=== PATIENT | male | born 1945 | race Caucasian/White ===

== ENCOUNTER 2019-10-16 09:42 | Outpatient (RCR) | payer MEDICARE, SELFPAY ==
--- NOTE | 2019-10-16 11:00 | PTOPEVAL ---
Thank you for referring this patient to [facility]. Please review, sign, date and return this plan of care YAW. I agree with and certify that the following plan of care is medically necessary. Referring Physician Date Admitting Provider: Attending Provider: Valdemar Luna MD Referring Provider: *PT Outpatient Evaluation Start: 10/16/19 10:08 Freq: Status: Active Protocol: Document 10/16/19 10:09 NIKOLAY (Rec: 10/16/19 10:49 INKOLAY [id number]) Therapy Assessment Status Assessment Status Assessment Status Evaluation Evaluation Information Problem Diagnosis bilateral hip pain Onset 10/15/18 Subjective Information Pt. reports that he noticed a Query Text:As Reported By Patient/ gradual onset of described Family outside hip pain over the past year. He states that he has lead a very active lifestyle. He states that he currently resides at the local assisted living facility. He reports that pain is increased with basic ADL's including dressing and walking. He reports that pain will shoot down the l.e. all the way down into his shins. He states that left side pain is more intense than the right. Pt. has a hx of back surgery, but does not recall the specific surgery. He states that his goal is to decrease his hip pain with activity. Prior Level of Function Activity Level (Last 3 Months) Occupation retired Hand Dominance Left Activity of Daily Living Ability Independent Indoor/Home Mobility Independent Community Mobility Needs Some Help Stairs Ability Not-Applicable Cooking No Cleaning No Laundry No Shopping No Driving No Home Setting Home Type Assisted Living Facility Living Situation Alone Support Available Local Family Support,Physical Assist Available Pain Assessment Timing of Pain Assessment Timing of Pain Assessment Pre-Treatment Pain Scale Pain Scale Used Numeric (1 - 10) Self Report Pain Assessment Bilateral Hip(s) Reported Pain L
--- NOTE | 2019-10-22 08:33 | PCPTNOTE ---
10/22/19-pt cancelled appointment today secondary to lock down at [facility]. -
== END 2019-10-17 08:17 | disposition home or self-care (01) ==
LOC: CHSPT 09:42
PROVIDERS: PCP Internal Medicine; Visit Provider Orthopaedic Surgery
DX: M25.552 Pain in left hip (principal); M25.551 Pain in right hip
CPT/HCPCS: 97014; 97110; 97161; G0283

== ENCOUNTER 2020-06-06 18:40 | Emergency (ER) | payer MEDICARE, SELFPAY ==
--- NOTE | ~2020-06-06 | XR_ITS ---
XR lumbar spine 2-3V 06/06/2020 19:59 Indication: Back pain for 3 weeks Procedure: 2 views lumbar spine Comparison: No prior studies for comparison. Findings: There are pedicle screws consistent with posterior spinal fusion at L4-S1. There is prosthe tic disc device at L5-S1. There is advanced disc narrowing at all lumbar levels with vacuum phenomena at L1-2, L2-3 and L3-4. No acute fracture or traumatic malalignment. There are laminectomy changes a t the levels of fusion. There is levoscoliosis. Generalized osteopenia. Moderate-severe osteoarthriti s of the hips. Impression: 1: No acute abnormality of the lumbar spine. 2: Severe lumbar spondylosis with fusion at L4-S1. Reviewed, dictated and finalized at location A. Impression: 1: No acute abnormality of the lumbar spine. 2: Severe lumbar spondylosis with fusion at L4-S1.
[2020-06-06 18:54] VITALS: BP 121/57; PULSE 74; RESP 20; TEMP 37.1; O2SAT 97
--- NOTE | 2020-06-06 18:57 | ED.FALL ---
HPI - Fall General Chief Complaint: Fall Stated Complaint: ambulance Time Seen by Provider: 06/06/20 18:59 History of Present Illness HPI Narrative: 75-year-old male patient is brought by EMS to the ER from an assisted living center for the complaints of pain in the back. The patient states that he sustained a ground level fall 3 weeks ago and since then has had progressive pain in the back. He points the pain to the left side of his lumbar area. He states that he favors that side very much. He states that he has been walking with his back hunched over to alleviate the pain. He has been able to control the pain with Tylenol. He has had no limitation in ambulation with the help of walker. He denies any other recent falls. He states that the assisted living center staff saw him hunched over today and decided to send him over for evaluation to the ER. The patient apparently has had falls in the past. And has been through physical therapy twice. He is otherwise significantly independent at this assisted living center. He has not been receiving any physical therapy lately because of COVID. He denies any numbness or weakness to his lower extremities. He denies any constant urinary or bowel incontinence. He does admit to drinking a lot a water and has to urinate frequently. Periodically he does not make it to the bathroom. 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 He states that the back pain has been relieved with the heating pad that he acquired recently. Related Data Home Medications Medication Instructions Recorded Confirmed amlodipine 10 mg PO DAILY 06/06/20 06/06/20 aspirin 81 mg PO DAILY 06/06/20 06/06/20 atorvastatin 10 mg PO DAILY 06/06/20 06/06/20 cholecalciferol (vitamin D3) 50 mcg PO DAILY 06/06/20 06/06/20 cyanocobalamin (vitamin B-12) 2,500 mcg PO DAILY 06/06/20 06/06/20 folic acid 1 mg PO DAILY 06/06/20 06/06/20 gabapentin 300 mg PO HS 06/06/20 06/06/20 Allergies Allergy/AdvReac Type Severity Reaction Status Date / Time No Known Allergies Allergy Unverified 06/06/20 19:05 Review of Systems Review of Systems: All systems reviewed & are unremarkable except as noted in HPI and below Constitutional: Constitutional: Denies chills, Denies fatigue, Denies fever(s) and Denies weakness Eyes: Eyes: Denies change in vision ENT: Denies vertigo and Denies dizziness Cardiovascular: Cardiovascular: Denies chest pain Respiratory: Respiratory: Denies no additional respiratory complaints and Denies dyspnea Gastrointestinal: Gastrointestinal: Denies abdominal pain Genitourinary: Genitourinary: Reports as per HPI Musculoskeletal: Musculoskeletal: Reports back pain and Denies joint swelling Neurologic: Denies confusion, Denies vertigo, Denies dizziness, Denies syncope, Denies headache(s), Denies focal weakness, Denies numbness and Denies weakness Psychiatric: Psychiatric: Denies anxiety PMFSH Past Medical History Medical History Frequent falls Hearing loss Hypercholesterolemia Hypertension Surgical History Surgical History History of bilateral knee replacement Family History Family History Other Hypertension Social History Social History Smoking status: Never smoker Alcohol intake: current Substance use: unknown Gender identity (if verbalized by the patient): Male Spiritual care concerns: No Exam Const: General: no acute distress and alert Orientation/consciousness: patient oriented x3 HENMT: Head: normal to inspection Ears: external ears normal Face and sinus: normal facial exam Mouth: Yes Normal oral and palatal mucosa present and Yes moist mucous membranes E
[2020-06-06] MEDS: ACETAMINOPHEN 325 MG TABLET 650 MG PO (19:24)
[2020-06-06 19:37] LABS: Add Urine Microscopic? YES; Appearance Urine Clear (Clear); Bilirubin Urine 1+ (Negative); Blood Urine 1+ (Negative); Color Urine Yellow (Yellow); Glucose Urine UA Trace (Negative); Ketones Urine 1+ (Negative); Leukocyte Esterase Ur Negative (Negative); Nitrate Urine Negative (Negative); Protein Urine 1+ (Negative); Specific Grav Ur >= 1.030 (1.010-1.020); pH Urine 5.5 (5.0-8.0)
[2020-06-06 19:46] LABS: Squamous Epithelial Cell Urine Rare /hpf (Few); WBC Urine 0-3 /hpf (0-3)
[2020-06-06 19:47] LABS: Bacteria Urine Trace /hpf
[2020-06-06 21:30] VITALS: BP 152/76; PULSE 63; RESP 20; O2SAT 100
== END 2020-06-06 21:30 ==
PROVIDERS: Emergency Provider Emergency Medicine; PCP Family Medicine
DX: M54.9 Dorsalgia, unspecified (principal); E78.00 Pure hypercholesterolemia, unspecified; I10 Essential (primary) hypertension
CPT/HCPCS: 72100; 81001; 99282; 99283; A9270

== ENCOUNTER 2020-06-07 10:47 | Observation (INO) | payer MEDICARE, SELFPAY ==
[2020-06-07] VITALS (8 sets, daily range): BP systolic 142–177; BP diastolic 58–80; PULSE 53–61; RESP 14–22; TEMP 36.1–37.2; O2SAT 98–100; BMI 19.8
--- NOTE | ~2020-06-07 | CT_ITS ---
EXAMINATION: CT pelvis wo con DATE: 06/07/2020 12:54 INDICATION: Low back and pelvic pain TECHNIQUE: Computed tomography (CT) of the pelvis was performed without intravenous contrast. The dos e-length product (DLP) was 153.62 mGy-cm. Automated exposure control and iterative reconstruction sourav hnique were employed. COMPARISON: None FINDINGS: There are partially imaged surgical changes in the lumbar spine. No pelvic fracture is iden tified. There is moderate right and severe left hip osteoarthritis. No pathologically enlarged pelvic lymph nodes are identified. There is calcified atherosclerosis. An intramuscular lipoma is noted in the left hip flexors. A moderate volume of colonic stool is present. IMPRESSION: 1. No fracture identified. Reviewed, dictated and finalized at location A. NE GENERATOR ASSEMBLER IMPRESSION: 1. No fracture identified.
--- NOTE | ~2020-06-07 | XR_ITS ---
EXAMINATION: XR chest 1V INDICATION: Pain after fall TECHNIQUE: AP view of the chest is obtained. COMPARISON: None available FINDINGS: The lungs are free of acute opacities. There is no pleural effusion or pneumothorax. The ca rdiomediastinal silhouette is normal. Surgical changes are noted in the cervical spine and left humer us. IMPRESSION: 1. No acute cardiopulmonary abnormality. Reviewed, dictated and finalized at location A. TRICIAN RECTIFIER MAINTENANCE
--- NOTE | ~2020-06-07 | CT_ITS ---
EXAMINATION: CT lumbar spine wo con DATE: 06/07/2020 12:54 INDICATION: Low back pain TECHNIQUE: Computed tomography (CT) of the lumbar spine was performed without intravenous contrast. T he dose-length product (DLP) was 765.59 mGy-cm. Iterative reconstruction was used. COMPARISON: None FINDINGS: There are changes of fusion procedure and laminectomy from L4 through S1. There is advanced loss of intervertebral disc space height at L1-2 through L3-4. The vertebral body heights are mainta ined. There are 4 mm of anterolisthesis of L5 on S1. No fracture is identified. IMPRESSION: 1. Surgical changes and severe lumbar spondylosis without acute abnormality identified. Reviewed, dictated and finalized at location A. ET ASSET PROTECTION MANAGER IMPRESSION: 1. Surgical changes and severe lumbar spondylosis without acute abnormality stacey ntified.
--- NOTE | ~2020-06-07 | CT_ITS ---
EXAMINATION: CT brain wo con INDICATION: Head injury COMPARISON: None TECHNIQUE: Standard unenhanced head CT. The dose-length product (DLP) was 605.33 mGy-cm. The mA was a djusted according to patient size. Iterative reconstruction technique was employed. FINDINGS: There is no acute intraparenchymal hemorrhage. No evidence of mass lesion. No evidence of a cute infarction. There is mild periventricular and subcortical hypodensity probably related to small vessel ischemic disease. There is mild prominence of the sulci and ventricles related to cerebral atr ophy. Intracranial calcified cerebral atherosclerosis is noted. There are no extra-axial collections. There is no mass effect or midline shift. Changes in the globes are likely from ocular lens surgery. The visualized sinuses and mastoid air cells are well aerated. IMPRESSION: 1. No acute intracranial abnormality. 2. Age related findings. Reviewed, dictated and finalized at location A. RESSIVE CARE UNIT REGISTERED NURSE
--- NOTE | 2020-06-07 10:56 | ECG_ITS ---
Measurements Intervals [place] Rate: 56 P: 47 [place]: 163 QRS: -13 QRSD: 90 T: 58 QT: 409 QTc: 397 Interpretive Statements SINUS BRADYCARDIA WITH SINUS ARRHYTHMIA BASELINE ARTIFACT- I, II, AVR, AVL, AVF, V1 NORMAL ECG Electronically Signed On 06-07-2020 15:09:00 WHARF ATTENDANT by Romulo Martínez D.O.
[2020-06-07 11:17] LABS: Basophils Percent Auto 0.3 % (0.2-1.2); Eosinophils Absolute Auto 0.1 K/mm3 (0-0.3); Eosinophils Percent Auto 1.2 % (0-4.4); Hemoglobin 11.5 g/dL (14.0-18.0); Immature Granulocyte Absolute 0.03 K/mm3 (0.00-0.031); Immature Granulocyte Percent A 0.5 % (0-0.5); Lymphocytes Absolute Auto 0.77 K/mm3 (0.9-3.2); Lymphocytes Percent Auto 13.3 % (18.3-44.2); Mean Corpuscular HGB Conc 32.9 g/dl (32-36); Mean Corpuscular Hemoglobin 32.2 pg (26-34); Mean Platelet Volume 8.8 fl (7.4-10.4); Monocytes Absolute Auto 0.5 K/mm3 (0.1-0.6); Neutrophils Absolute Auto 4.4 K/mm3 (1.3-6.7); Neutrophils Percent Auto 75.7 % (45.5-73.1); Platelet Count Result 282 k/mm3 (150-375); Red Blood Count 3.57 M/mm3 (4.6-6.20); Red Cell Distribution Width 13.6 % (11.5-14.5); White Blood Count 5.8 K/mm3 (4.5-10.0)
[2020-06-07 11:32] LABS: Alanine Aminotransferase 44 U/L (4-50); Albumin Level 3.9 g/dL (3.5-5.1); Alkaline Phosphatase 71 U/L (38-126); Anion Gap 5 mmol/L (8-16); Aspartate Amino Transferase 49 U/L (17-59); Bilirubin,Total 0.8 mg/dL (0.2-1.3); Blood Urea Nitrogen 20 mg/dL (9-20); Calcium 9.1 mg/dL (8.4-10.2); Carbon Dioxide 34 mmol/L (22-30); Chloride 105 mmol/L (98-107); Estimated CRCL calculation 68 ml/min; Estimated Glomerular Filt Rate > 60; Glucose 93 mg/dL (75-110); Sodium 144 mmol/L (137-145)
[2020-06-07 12:24] LABS: Add Urine Microscopic? YES; Appearance Urine Clear (Clear); Bilirubin Urine Negative (Negative); Blood Urine 1+ (Negative); Color Urine Yellow (Yellow); Glucose Urine UA Negative (Negative); Ketones Urine 1+ mg/dL (Negative); Leukocyte Esterase Ur Negative LEU/UL (Negative); Mucus Urine Few /lpf; Nitrate Urine Negative (Negative); Protein Urine 2+ mg/dL (Negative); Specific Grav Ur 1.026 (1.001-1.035); Squamous Epithelial Cell Urine Rare /hpf (Few); WBC Urine 0-3 /hpf
--- NOTE | 2020-06-07 12:24 | ED.WEAKNESS ---
HPI - Weakness General Chief complaint: Weakness Stated complaint: weak Time Seen by Provider: 06/07/20 12:01 Source: RN notes reviewed History of Present Illness HPI Narrative: Patient presents emergency department from assisted living via EMS for weakness. Patient states he currently lives in assisted living onto the walker but is been having increased difficulty getting up and ambulating secondary to weakness in left leg and lower back pain states he fell approximately 1 week ago injuring his left lower back and his left hip. States he was seen last night for the continued pain at [facility] with negative x-rays at that time. Per the family the patient has had a decreased appetite and has been weaker since the fall and patient was sent for further evaluation he denies any fevers or chills chest pain shortness of breath abdominal pain nausea vomiting or any other symptoms Related Data Home Medications Medication Instructions Recorded Confirmed amlodipine 10 mg PO DAILY 06/06/20 06/07/20 atorvastatin 10 mg PO DAILY 06/06/20 06/07/20 cholecalciferol (vitamin D3) 50 mcg PO DAILY 06/06/20 06/07/20 cyanocobalamin (vitamin B-12) 2,500 mcg PO DAILY 06/06/20 06/07/20 folic acid 1 mg PO DAILY 06/06/20 06/07/20 gabapentin 300 mg PO HS 06/06/20 06/07/20 aspirin 81 mg PO DAILY 06/07/20 06/07/20 Allergies Allergy/AdvReac Type Severity Reaction Status Date / Time No Known Allergies Allergy Verified 06/07/20 16:33 Review of Systems Review of Systems: Narrative: Gen.: Denies fevers or chills Eyes: Denies eye pain or visual change ENT: Denies congestion Respiratory: Denies shortness of breath or cough CV: Denies chest pain or palpitations GI: Denies abdominal pain nausea, emesis or diarrhea denies burning, urgency, frequency or hematuria Musculoskeletal: See HPI Neuro: Denies numbness, tingling reports weakness Skin: Denies rash Except as documented, all other systems reviewed and negative PMFSH Past Medical History Medical History Frequent falls Hearing loss Hyperlipidemia Hypertension Osteoarthritis Surgical History Surgical History History of bilateral knee replacement Family History Family History Other Hypertension Social History Social History Social History: Surrogate decision maker: Christiano Rasheed, aryan. Code status: Full code. Smoking status: Never smoker Alcohol intake: current Drinks per week: 4 Substance use: unknown Substance use type: does not use Additional living arrangements comments: Resides at [facility]. Gender identity (if verbalized by the patient): Male Spiritual care concerns: No Exam Narrative: Exam Narrative: APPEARANCE: No acute distress, nontoxic, resting in bed EYES: EOMI HEENT: Normocephalic, atraumatic, OMM RESPIRATORY: No respiratory distress Clear to auscultation bilaterally with no rhonchi wheezing or rales. CARDIOVASCULAR: Regular rate and rhythm without murmurs rubs or gallops. ABDOMINAL: Soft, nontender, nondistended, no rebound or guarding MUSCULOSKELETAl: Moves all extremities. No clubbing, cyanosis 3+ edema the bilateral lower extremities, tender palpation over the left lateral hip no swelling or ecchymosis pain with flexion greater than 45 degrees no change in the left knee or ankle dorsalis pedis pulse 2+ Back: No midline thoracic lumbar spine tenderness palpation, tender palpation over left paravertebral muscles L3-5 NEURO: Awake and alert x 3. Following commands, speech normal, no focal deficits SKIN:: Warm, dry. No rashes lesions or abrasions PSYCHIATRIC: Normal affect/mood, Course Course Emergency Course: Patient attempted get up to use bedside commode took 2 staff members to
[2020-06-07] MEDS: SODIUM CHLORIDE 0.9% IV 1,000 ML 999 ML IV CONT (13:35)
[2020-06-07 14:20] LABS: CRP < 0.5 mg/dL (<1.0)
[2020-06-07] MEDS: POTASSIUM CHLORIDE 20 MEQ TABLET 40 MEQ PO (14:30)
[2020-06-07 14:38] LABS: Erythrocyte Sedimentation Rate 17 mm/hr (0-20)
--- NOTE | 2020-06-07 16:06 | ADMGEN ---
This patient, Isaías Rasheed, was admitted to 2 Medical Room 259-01. Patient/family oriented to hospital policies and general routines including ID bracelet, bed and alarms, visiting hours, pain management, procedures, bathroom and other care routines, personal items, smoking policy, room service/diet, and visiting hours. Information on how to activate the Rapid Response Team has been discussed. Patient/Family are encouraged to report perceived risks to care and to ask questions if they do not understand what they are told or what they should do.
--- NOTE | 2020-06-07 17:00 | PM.IMHP ---
H&P: HPI History of Present Illness Date/Time: 06/07/20 17:00 Chief complaint: Left hip in back pain, weakness. Narrative: Isaías Rasheed is a 75-year-old male with hypertension and hyperlipidemia presented to the emergency department earlier today via EMS from his assisted living facility in [place] for evaluation of left hip and low back pain as well as weakness. Approximately 3 weeks ago he sustained a ground level fall after losing his balance and since that time he has had progressive pain in his left lower back and left hip. He has been compensating for this pain with an abnormal gait and staff at his assisted living facility sent him to the emergency department in [place] last evening as he was walking hunched over. Lumbar x-ray showed no acute findings, and he was discharged home. Today he had difficulties getting himself out of bed due to generalized weakness and pain. He goes on to say that it is not unusual for him to have pain in his left hip and in fact he has done 2 rounds of physical therapy for such with mild improvement. He still needs to take Tylenol twice daily for the ongoing discomfort, however. It also sounds like he has had several falls in the last couple of months, and he has a difficult time telling me exactly how it is that he is falling. He ambulates with a walker and indicates that he is falling because he is ?reaching for something that I should not be reaching for.? He has not seen an orthopedic surgeon regarding the severe osteoarthritis of the left hip noted on imaging today, and goes on to tell me that he is too old and is not interested in surgery. He would prefer not to get any injections as they do not last any length of time. Additionally he does not seem interested in going to a rehab facility and perseverates on the fact that it would take a lot of coordination efforts to get that accomplished. He denies focal weakness, paresthesias (although he does note chronic paresthesias of both hands from previous cervical spine surgery, reportedly), vertigo, and auditory or visual changes. No bowel or bladder incontinence. He denies saddle anesthesia. Review of Systems Review of Systems: Narrative: Twelve systems were reviewed with pertinent positives and negatives as per HPI. No fever, chills, or sweats. No recent cold or flu symptoms. He denies chest pain shortness of breath. No cough. No nausea, vomiting, or diarrhea. No dysuria or hematuria. Except as documented, all other systems were reviewed and are negative. [facility] Past Medical History Medical History (Updated 06/07/20 @ 19:07 by Robby Alarcon DO) Frequent falls Hearing loss Hyperlipidemia Hypertension Osteoarthritis Surgical History Surgical History (Updated 06/07/20 @ 21:38 by Iwona Mathew PA-C) History of bilateral cataract extraction History of bilateral knee replacement History of cervical spinal surgery With removal of bone spurs. History of lumbar fusion With laminectomy, at L4-S1. History of repair of left rotator cuff Status post LASIK surgery Family History Family History Other Hypertension Social History Social History (Updated 06/07/20 @ 21:39 by Iwona Mathew PA-C) Social History: Surrogate decision maker: Christiano Rasheed, son. Code status: Full code. Smoking status: Never smoker Alcohol intake: current Drinks per week: 4 Substance use: unknown Substance use type: does not use Additional living arrangements comments: Resides at [facility]. He has a parakeet. Ambulates with a walker. 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 Gender identity (if verbalized by the patient): Male Spiritual care concerns: No Meds Home Medications and Allergies Home Medications Medication Instructions Recorde
[2020-06-07] MEDS: GABAPENTIN 300 MG CAPSULE PO (22:14)
[2020-06-07] MEDS: ACETAMINOPHEN 325 MG TABLET 650 MG PO (22:14)
[2020-06-07 22:16] LABS: Alanine Aminotransferase 48 U/L (4-50); Alkaline Phosphatase 77 U/L (38-126); Aspartate Amino Transferase 56 U/L (17-59)
[2020-06-07 22:20] LABS: Creatine Kinase 338 U/L (55-170)
[2020-06-07 22:21] LABS: Anion Gap 3 mmol/L (8-16); Blood Urea Nitrogen 14 mg/dL (9-20); Calcium 9.3 mg/dL (8.4-10.2); Carbon Dioxide 37 mmol/L (22-30); Chloride 101 mmol/L (98-107); Estimated CRCL calculation 67 ml/min; Estimated Glomerular Filt Rate > 60; Glucose 95 mg/dL (75-110); Magnesium 2.2 mg/dL (1.6-2.3); Potassium 4.2 mmol/L (3.4-5.0); Sodium 141 mmol/L (137-145)
[2020-06-08] VITALS (8 sets, daily range): BP systolic 139–184; BP diastolic 60–82; PULSE 52–85; RESP 16–21; TEMP 36.7–37.2; O2SAT 98–100
[2020-06-08 02:11] LABS: Vitamin B12 > 1000.0 pg/mL (239-931)
[2020-06-08 05:46] LABS: Basophils Percent Auto 0.3 % (0.2-1.2); Eosinophils Percent Auto 0.6 % (0-4.4); Hematocrit 38.2 % (42.0-52.0); Hemoglobin 12.5 g/dL (14.0-18.0); Immature Granulocyte Absolute 0.02 K/mm3 (0.00-0.031); Immature Granulocyte Percent A 0.3 % (0-0.5); Lymphocytes Percent Auto 17.5 % (18.3-44.2); Mean Corpuscular HGB Conc 32.7 g/dl (32-36); Mean Corpuscular Hemoglobin 31.7 pg (26-34); Mean Platelet Volume 8.8 fl (7.4-10.4); Monocytes Absolute Auto 0.6 K/mm3 (0.1-0.6); Monocytes Percent Auto 9.2 % (2.6-8.5); Neutrophils Absolute Auto 4.5 K/mm3 (1.3-6.7); Neutrophils Percent Auto 72.1 % (45.5-73.1); Platelet Count Result 273 k/mm3 (150-375); Red Blood Count 3.94 M/mm3 (4.6-6.20); Red Cell Distribution Width 13.2 % (11.5-14.5); White Blood Count 6.3 K/mm3 (4.5-10.0)
[2020-06-08 06:01] LABS: Anion Gap 6 mmol/L (8-16); Blood Urea Nitrogen 13 mg/dL (9-20); Calcium 8.9 mg/dL (8.4-10.2); Carbon Dioxide 32 mmol/L (22-30); Chloride 101 mmol/L (98-107); Estimated CRCL calculation 79 ml/min; Estimated Glomerular Filt Rate > 60; Glucose 82 mg/dL (75-110); Potassium 3.2 mmol/L (3.4-5.0); Sodium 139 mmol/L (137-145)
[2020-06-08] MEDS: amLODIPine BESYLATE 5 MG TABLET 10 MG PO (09:43)
[2020-06-08] MEDS: FOLIC ACID 1 MG TABLET PO (09:43)
[2020-06-08] MEDS: ASPIRIN 81 MG ENTERIC TABLET PO (09:44)
[2020-06-08] MEDS: CHOLECALCIFEROL 1,000 UNITS TABLET 2000 UNITS PO (09:44)
[2020-06-08] MEDS: CYANOCOBALAMIN 500 MCG TABLET 2500 MCG PO (09:44)
--- NOTE | 2020-06-08 11:38 | PM.IMPN ---
Progress Note: A&P Assessment and Plan (1) Acute pain of left hip: Code(s): M25.552 - Pain in left hip Status: Acute Assessment and Plan: Ct Lumbar and sacral spine reviewed Significant stenosis Undergoing PT/OT Remote hx of spinal fusion (2) Gait instability: Code(s): R26.81 - Unsteadiness on feet Status: Acute Assessment and Plan: Continue PT/OT Will go to acute rehabilitation. (3) Low back pain: Code(s): M54.5 - Low back pain Status: Acute Assessment and Plan: Pain management. (4) Weakness: Code(s): R53.1 - Weakness Status: Acute Assessment and Plan: PT/OT CT spinal L-S reviewed. (5) Acute hypokalemia: Code(s): E87.6 - Hypokalemia Status: Acute Assessment and Plan: Replace as needed. (6) Low back pain: Code(s): M54.5 - Low back pain Status: Acute Assessment and Plan: Continue pain management. (7) Frequent falls: Code(s): R29.6 - Repeated falls Status: Acute Assessment and Plan: Will benefit from PT/OT (8) Degenerative joint disease of left hip: Code(s): M16.12 - Unilateral primary osteoarthritis, left hip Status: Acute Assessment and Plan: Will need eval for hip replacement. Subjective Date/time seen: 06/08/20 11:38 I'm very weak after I had a fall. I'm looking at rehabilitation. Review of Systems Review of Systems: Narrative: Patient with progressive weakness and gait disturbance after having a fall. Constitutional: Comments: no fevers, no rigors, no chills. ENT: Comments: no ear ache, no throat pain, no nasal discharge. Cardiovascular: Comments: no chest pain, no orthopnea, no pnd. Respiratory: Comments: no cough, no sob, no sputum production. Gastrointestinal: Comments: no n/v/abdominal pain. Musculoskeletal: Comments: Pain in the hip , difficulty walking and weakness after fall. Integumentary/Breasts: Comments: no rashes. Neurologic: Comments: no sensory motor deficit. Endocrine: Comments: No heat or cold intolerance. Exam Narrative: Exam Narrative: Patient in bed well appearing. Const: General: cooperative, healthy appearing, comfortable, no acute distress, well developed, alert, awake and Physically active Nutritional Appearance: average body habitus Orientation/consciousness: patient oriented x3 Limitations: physical limitations Other: Gait disturbance. HENMT: Head: normal to inspection and normocephalic Ears: hearing grossly normal bilaterally General nose exam: Normal external nose present Eyes: General: appearance normal, both eyes and all related structures Pupils: Equal, round and reactive pupils present EOM: EOMs intact bilaterally Neck: Neck: full ROM, no lymphadenopathy and no JVD Thyroid: thyroid normal Lymphatic: no lymphadenopathy noted Resp: Effort & Inspection: normal respiratory effort Auscultation: clear to auscultation bilaterally Cardio: Jugular venous distension: no JVD Rate: regular rate Rhythm: regular rhythm Heart sounds: S1 normal heart sound present and S2 normal heart sound present GI: Inspection: normal to inspection GI Palp: Yes Soft to palpation and Yes No hepatosplenomegaly present Auscultation: normal bowel sounds Back/Spine/Pelvis: Back: no CVA tenderness Skin: General skin exam: normal color Lesions: no lesions Rashes: no rashes Trauma: no lacerations or abrasions Wounds: no wounds Neuro: General: patient oriented x3 Cranial nerves: Yes CN's II-XII intact bilaterally and Yes Equal, round and reactive pupils present Cognition (Neuro): normal cognition Speech: normal speech Gait exam (Neuro): Unable to assess gait Extrem: General: normal to inspection and no pedal edema Objective Data Vital Signs Vital Signs: Vital Signs - 24 hr 06/07/20 11:44 06/07/20 11:55 06/07/20 13:35 Temperature Pulse Rate 54 L 59 L 61 Respiratory Rate 16 14 Blood Pressure 170/79
[2020-06-08] MEDS: GABAPENTIN 300 MG CAPSULE PO (19:57)
[2020-06-09] MEDS: ACETAMINOPHEN 325 MG TABLET 650 MG PO ×2 (01:50→08:19)
[2020-06-09 06:00] VITALS: BP 159/69; PULSE 70; RESP 21; TEMP 36.7; O2SAT 100
[2020-06-09 06:04] VITALS: BP 145/86; PULSE 98; RESP 20; TEMP 37; O2SAT 99
[2020-06-09 06:06] VITALS: BP 120/84; PULSE 103; RESP 20; TEMP 36.9; O2SAT 99
[2020-06-09 08:00] LABS: Hematocrit 39.7 % (42.0-52.0); Hemoglobin 13.2 g/dL (14.0-18.0); Mean Corpuscular HGB Conc 33.2 g/dl (32-36); Mean Corpuscular Hemoglobin 32.2 pg (26-34); Mean Corpuscular Volume 96.8 fl (80-100); Mean Platelet Volume 8.9 fl (7.4-10.4); Platelet Count Result 294 k/mm3 (150-375); Red Cell Distribution Width 13.3 % (11.5-14.5); White Blood Count 7.6 K/mm3 (4.5-10.0)
[2020-06-09 08:14] LABS: Anion Gap 8 mmol/L (8-16); Blood Urea Nitrogen 15 mg/dL (9-20); Calcium 8.8 mg/dL (8.4-10.2); Carbon Dioxide 34 mmol/L (22-30); Chloride 98 mmol/L (98-107); Estimated CRCL calculation 67 ml/min; Estimated Glomerular Filt Rate > 60; Glucose 101 mg/dL (75-110); Magnesium 2.1 mg/dL (1.6-2.3); Potassium 2.9 mmol/L (3.4-5.0); Sodium 140 mmol/L (137-145)
[2020-06-09] MEDS: CYANOCOBALAMIN 500 MCG TABLET 2500 MCG PO (08:15)
[2020-06-09] MEDS: CHOLECALCIFEROL 1,000 UNITS TABLET 2000 UNITS PO (08:16)
[2020-06-09] MEDS: ASPIRIN 81 MG ENTERIC TABLET PO (08:16)
[2020-06-09] MEDS: FOLIC ACID 1 MG TABLET PO (08:16)
[2020-06-09] MEDS: amLODIPine BESYLATE 5 MG TABLET 10 MG PO (08:16)
[2020-06-09] MEDS: POTASSIUM CHLORIDE 20 MEQ TABLET 40 MEQ PO (11:08)
[2020-06-09 14:00] VITALS: BP 138/73; PULSE 74; RESP 18; TEMP 36.8; O2SAT 98
[2020-06-09 14:32] LABS: Anion Gap 2 mmol/L (8-16); Blood Urea Nitrogen 18 mg/dL (9-20); Carbon Dioxide 35 mmol/L (22-30); Chloride 99 mmol/L (98-107); Estimated CRCL calculation 67 ml/min; Estimated Glomerular Filt Rate > 60; Glucose 112 mg/dL (75-110); Potassium 3.7 mmol/L (3.4-5.0); Sodium 136 mmol/L (137-145)
--- NOTE | 2020-06-09 15:56 | PM.DS ---
DS: Admitting Diagnosis Admitting Diagnosis Admitting Diagnosis: Left hip in back pain, weakness. DS: Discharge Diagnosis Discharge Diagnosis (1) Acute pain of left hip: Code(s): M25.552 - Pain in left hip Status: Acute Assessment and Plan: Ct Lumbar and sacral spine reviewed; severe spondylosis with significant stenosis and without acute abnormality noted. CT pelvis shows no acute fracture . remote history of spinal fusion PT/OT during hospital stay; contact guard Plan to discharge back to [place] today with outpatient rehab F/u with PCP Will need referral for severe OA of left hip (2) Gait instability: Code(s): R26.81 - Unsteadiness on feet Status: Acute Assessment and Plan: PT/OT during stay Will do outpatient PT/OT (3) Low back pain: Code(s): M54.5 - Low back pain Status: Acute Assessment and Plan: Contiue with current Pain management. F/u with PCP (4) Weakness: Code(s): R53.1 - Weakness Status: Acute Assessment and Plan: PT/OT CT spinal L-S reviewed. F/u with PCP (5) Acute hypokalemia: Code(s): E87.6 - Hypokalemia Status: Acute Assessment and Plan: 2.9 this morning; replaced and now 3.7. BMP 06/12 F/u with PCP (6) Frequent falls: Code(s): R29.6 - Repeated falls Status: Acute Assessment and Plan: Please see above a/p DS: Summary Hospital Course Reason for hospitalization: Gait instability hypokalemia Hospital Course: Patient is a 75 yo M with hypertension and hyperlipidemia presented to the emergency department on 06/07 via EMS from his assisted living facility in [place] for evaluation of left hip and low back pain as well as weakness. Patient had sustained a fall 3 weeks prior and has had pain in left lower back and left hip since then. He presented to the ED on 06/06 and lumbar Xray at that time showed no acute findings and was discharged home. He returned to the ED on 06/07 as he was having difficulties getting himeslf out of bed to weakness and pain. Lumbar CT in ED showed surgical changes and severe lumbar spondylosis without acute abnormality identified. Patient admitted under this setting. Please see H&P for further details. Patient was admitted to the hospitalist service for further evaluation. Patient was assessed with PT/OT and performed fairly well; outpatient PT/OT recommended. His potassium was replaced during stay and was 3.7 on day of discharge; he was to follow up with BMP on 06/12 for further monitoring. He was to follow up with his PCP in 1 week after discharge for possible referral to a spinal surgeon and/or orthopedic surgeon for further evaluation/management of chronic OA and spinal issues. Patient agreeable and comfortable with plan for discharge. Patient hemodynamically stable and in improved condition for discharge on 06/09 Status at Discharge Overall status at discharge: patient is progressing back to baseline Time Spent with Patient Time attestation: Total time spent providing and/or coordinating discharge services: Time spent: Greater than 30 minutes Exam Narrative: Exam Narrative: General: Patient resting supine in bed in no acute distress. HEENT: Normocephalic, EOMI, oral mucosa moist. Cardiovascular: Rate and rhythm are regular. No notable murmur, rub, or gallop. Respiratory: Lungs clear to auscultation anteriolateral painter. Non-labored breathing. ecchymosis noted on left posterior lower thorax noted. Abdomen: Soft, non-tender, non-distended, bowel sounds present. Extremities: Peripheral pulses intact. No edema. MS 5/5 b/l LE. NVI b/l Neuro: No focal neurological deficits. Speech is clear. DS: Data
== END 2020-06-09 20:30 ==
LOC: ANHED 12:01 → ANH2MED 14:18
PROVIDERS: General Practice; Physician Assistant; Admitting Provider Internal Medicine; Emergency Provider Emergency Medicine; PCP Family Medicine; Visit Provider Internal Medicine
DX: R53.1 Weakness (principal); M54.5 Low back pain; R26.81 Unsteadiness on feet; M25.552 Pain in left hip; R63.0 Anorexia; E78.5 Hyperlipidemia, unspecified; I10 Essential (primary) hypertension; R29.6 Repeated falls; M47.816 Spondylosis without myelopathy or radiculopathy, lumbar region; E87.6 Hypokalemia; Z98.1 Arthrodesis status; M16.12 Unilateral primary osteoarthritis, left hip; E78.00 Pure hypercholesterolemia, unspecified; Z79.82 Long term (current) use of aspirin
CPT/HCPCS: 36415; 70450; 71045; 72131; 72192; 80048; 80053; 80076; 81001; 82550; 82607; 83735; 84443; 85025; 85027; 85652; 86140; 93005; 96360; 96361; 96374; 97161; 97165; 99285; A9270; G0378; J3480; J7030

== ENCOUNTER 2020-06-10 05:02 | Emergency (ER) | payer MEDICARE, SELFPAY ==
[2020-06-10] VITALS (18 sets, daily range): BP systolic 143–170; BP diastolic 70–91; PULSE 72–95; RESP 18; TEMP 36.9; O2SAT 96–100
--- NOTE | ~2020-06-10 | XR_ITS ---
EXAMINATION: XR hip LT 2V w AP pelvis INDICATION: Left hip pain TECHNIQUE: AP view of the pelvis and two views of the left hip are obtained. COMPARISON: 08/27/2019 FINDINGS: There is moderate right and moderate to severe left hip osteoarthritis. No fractures identi fied. Bone alignment is normal. There are changes of lumbosacral fusion. Calcified atherosclerosis is noted. IMPRESSION: 1. Osteoarthritis without acute osseous abnormality. Reviewed, dictated and finalized at location A. OPAEDIC PHYSICIAN ASSISTANT
--- NOTE | 2020-06-10 05:33 | ED.FALL ---
HPI - Fall General Chief Complaint: Fall Stated Complaint: slid out of bed, left hip pain Time Seen by Provider: 06/10/20 05:21 Source: patient Mode of arrival: EMS Limitations: no limitations History of Present Illness HPI Narrative: Patient is a 75-year-old male complaining of left hip pain after slid out of bed prior to arrival. Patient states that he heard an alarm clock and as he tried to turn he slid out of bed. Patient states he was just discharged yesterday for the same complaint of left hip pain and recurrent falls. Patient denies any head, neck, chest, abdomen, back, or any other extremity pain/injury. Patient denies LOC. Related Data Home Medications Medication Instructions Recorded Confirmed amlodipine 10 mg PO DAILY 06/06/20 06/07/20 atorvastatin 10 mg PO DAILY 06/06/20 06/07/20 cholecalciferol (vitamin D3) 50 mcg PO DAILY 06/06/20 06/07/20 cyanocobalamin (vitamin B-12) 2,500 mcg PO DAILY 06/06/20 06/07/20 folic acid 1 mg PO DAILY 06/06/20 06/07/20 gabapentin 300 mg PO HS 06/06/20 06/07/20 aspirin 81 mg PO DAILY 06/07/20 06/07/20 naproxen sodium [Aleve] 220 mg PO Q8H PRN 06/10/20 Allergies Allergy/AdvReac Type Severity Reaction Status Date / Time No Known Allergies Allergy Verified 06/10/20 05:09 Review of Systems Review of Systems: All systems reviewed & are unremarkable except as noted in HPI and below Constitutional: Constitutional: Denies body ache(s), Denies chills, Denies excessive sweating, Denies fatigue, Denies fever(s), Denies headache(s), Denies lethargy, Denies malaise, Denies weakness and Denies weight loss Eyes: Eyes: Denies blurry vision, Denies change in vision and Denies loss of vision ENT: Denies dizziness, Denies ear discharge, Denies headache(s), Denies lip swelling, Denies epistaxis, Denies nasal congestion, Denies neck pain, Denies throat swelling and Denies tongue swelling Cardiovascular: Cardiovascular: Denies chest pain, Denies chest pain at rest, Denies chest pain with activity, Denies diaphoresis, Denies rapid heart rate, Denies edema, Denies irregular heart rhythm, Denies lightheadedness, Denies palpitations, Denies dyspnea and Denies dyspnea on exertion Respiratory: Respiratory: Denies chest congestion, Denies cough, Denies hemoptysis, Denies dyspnea and Denies dyspnea on exertion Gastrointestinal: Gastrointestinal: Denies abdominal pain, Denies melena, Denies hematochezia, Denies diarrhea, Denies nausea, Denies vomiting and Denies hematemesis Musculoskeletal: Musculoskeletal: Denies abnormal gait, Denies deformity, Denies joint swelling, Denies limited range of motion, Denies neck pain and Denies numbness Neurologic: Denies Abnormal speech present, Denies abnormal gait, Denies confusion, Denies dizziness, Denies headache(s), Denies focal weakness, Denies loss of vision, Denies numbness, Denies Other visual disturbances, Denies Sensory deficit (Neuro) and Denies weakness Psychiatric: Psychiatric: Denies confusion, Denies depression, Denies auditory hallucinations, Denies homicidal ideation and Denies suicidal ideation Endocrine: Endocrine: Denies cold intolerance, Denies excessive sweating, Denies fatigue, Denies heat intolerance and Denies palpitations Hematologic/Lymphatic: Hematologic/Lymphatic: Denies easy bleeding and Denies easy bruising Allergic/Immunologic: Allergic/Immunologic: Denies lip swelling, Denies throat swelling and Denies tongue swelling PMFSH Past Medical History Medical History (Updated 06/10/20 @ 06:55 by Robby Lobo MD) Frequent falls Hearing loss Hyperlipidemia Hypertension Osteoarthritis Surgical History Surgical History (Updated 06/07/20 @ 21:38 by Iwona Mathew PA-C) History of bilateral cataract extraction History of bilateral knee replacement History of cervical spinal surgery With removal of bone spurs. History of lumbar fusion With laminectomy, at L4-S1. History of repair of left rotator cuff Status post LASIK surgery
[2020-06-10] MEDS: ACETAMINOPHEN 325 MG TABLET 650 MG PO (06:19)
--- NOTE | 2020-06-10 07:05 | PC.NURSE ---
breakfast tray ordered at this time.
--- NOTE | 2020-06-10 07:09 | PC.NURSE ---
RN spoke with daughter aubrie. She is awaiting daughters bus stop apple picker and will be here shortly.
--- NOTE | 2020-06-10 07:16 | PC.NURSE ---
rn report given to
== END 2020-06-10 09:00 ==
PROVIDERS: Emergency Provider Emergency Medicine; PCP Nurse Practitioner Family
DX: S76.012A Strain of muscle, fascia and tendon of left hip, initial encounter (principal); Z79.82 Long term (current) use of aspirin; E78.5 Hyperlipidemia, unspecified; I10 Essential (primary) hypertension; M19.90 Unspecified osteoarthritis, unspecified site; Z98.42 Cataract extraction status, left eye; Z98.41 Cataract extraction status, right eye; Z98.1 Arthrodesis status; R29.6 Repeated falls; W06.XXXA Fall from bed, initial encounter
CPT/HCPCS: 73502; 99283; A9270

== ENCOUNTER 2020-06-12 08:43 | Outpatient (NON) | payer MEDICARE, SELFPAY ==
[2020-06-12 10:10] LABS: Anion Gap 7 mmol/L (8-16); Blood Urea Nitrogen 31 mg/dL (7-18); Calcium 8.7 mg/dL (8.5-10.1); Carbon Dioxide 30 mmol/L (21-32); Chloride 106 mmol/L (98-108); Estimated Glomerular Filt Rate > 60; Glucose 82 mg/dL (70-99); Osmolality Calculated 301 mOsm/kg (285-295); Potassium 4.3 mmol/L (3.5-5.1); Sodium 143 mmol/L (136-145)
== END 2020-06-12 08:44 ==
PROVIDERS: Visit Provider Physician Assistant
DX: E87.6 Hypokalemia (principal)
CPT/HCPCS: 36415; 80048

== ENCOUNTER 2020-06-13 13:12 | Emergency (ER) | payer MEDICARE, SELFPAY ==
[2020-06-13 13:15] VITALS: BP 152/80; PULSE 67; RESP 16; TEMP 37; O2SAT 99
--- NOTE | 2020-06-13 13:17 | ECG_ITS ---
Measurements Intervals Tad Rate: 60 P: 69 KS: 172 QRS: 54 QRSD: 109 T: 58 QT: 402 QTc: 403 Interpretive Statements SINUS RHYTHM DELAYED PRECORDIAL R/S TRANSITION BORDERLINE ECG Electronically Signed On 06-14-2020 18:06:50 DRUG DEPARTMENT WORKER by Romulo Martínez D.O.
[2020-06-13 13:55] LABS: Basophils Absolute Auto 0.03 K/mm3 (0.00-0.10); Basophils Percent Auto 0.6 % (0.0-1.0); Eosinophils Absolute Auto 0.05 K/mm3 (0.02-0.50); Hematocrit 36.7 % (37.0-46.0); Hemoglobin 11.6 g/dL (12.4-15.3); Immature Granulocyte Absolute 0.03 K/mm3 (0.00-0.00); Immature Granulocyte Percent A 0.6 % (0.0-0.0); Lymphocytes Absolute Auto 0.91 K/mm3 (1.10-4.50); Lymphocytes Percent Auto 17.5 % (18.0-42.0); Mean Corpuscular HGB Conc 31.6 g/dL (32.0-36.0); Mean Corpuscular Hemoglobin 31.7 pg (27.0-31.0); Mean Corpuscular Volume 100.3 fL (78.0-102.0); Mean Platelet Volume 9.3 fl (8.7-11.0); Monocytes Absolute Auto 0.55 K/mm3 (0.10-0.90); Monocytes Percent Auto 10.6 % (2.0-11.0); Neutrophils Absolute Auto 3.6 K/mm3 (1.7-7.2); Neutrophils Percent Auto 69.7 % (50.0-70.0); Platelet Count Result 281 K/mm3 (150-420); Red Blood Count 3.66 M/mm3 (4.70-6.10); Red Cell Distribution Width 13.3 % (11.6-14.4); White Blood Count 5.2 K/mm3 (4.8-10.8)
[2020-06-13 13:57] LABS: Add Urine Microscopic? YES; Appearance Urine Clear (Clear); Bilirubin Urine Negative (Negative); Blood Urine 1+ (Negative); Color Urine Yellow (Yellow); Glucose Urine UA Negative (Negative); Ketones Urine 1+ (Negative); Leukocyte Esterase Ur Negative LEU/UL (Negative); Nitrate Urine Negative (Negative); Protein Urine Negative (Negative); Specific Grav Ur >= 1.030 (1.010-1.020); pH Urine 5.5 (5.0-8.0)
[2020-06-13 14:06] LABS: Amphetamine Screen Urine Negative (Negative); Barbiturate Screen Urine Negative (Negative); Benzodiazepines Screen Urine Negative (Negative); Cannabinoid Screen Urine Negative (Negative); Cocaine Screen Urine Negative (Negative); Methadone Screen Urine Negative (Negative); Opiate Screen Urine Negative (Negative); Phencyclidine Screen Urine Negative (Negative)
[2020-06-13 14:07] LABS: Bacteria Urine 1+ /hpf; Mucus Urine Moderate /lpf; Squamous Epithelial Cell Urine Rare /hpf (Few); WBC Urine 0-3 /hpf (0-3)
[2020-06-13 14:16] LABS: Acetaminophen < 2 ug/mL (10-30); Alanine Aminotransferase 29 U/L (16-63); Albumin Level 3.4 g/dL (3.4-5.0); Alkaline Phosphatase 71 U/L (46-116); Anion Gap 7 mmol/L (8-16); Aspartate Amino Transferase 16 U/L (15-37); Bilirubin,Total 0.6 mg/dL (0.00-1.00); Blood Urea Nitrogen 23 mg/dL (7-18); Calcium 8.7 mg/dL (8.5-10.1); Carbon Dioxide 29 mmol/L (21-32); Chloride 105 mmol/L (98-108); Estimated CRCL calculation 58 ml/min; Estimated Glomerular Filt Rate > 60; Ethanol < 3 mg/dL (0-6); Glucose 89 mg/dL (70-99); Osmolality Calculated 294 mOsm/kg (285-295); Potassium 3.6 mmol/L (3.5-5.1); Salicylate 0.7 mg/dL (2.8-20.0); Sodium 141 mmol/L (136-145); Thyroid Stimulating Hormone 1.12 uIU/mL (0.36-3.74); Total Protein 6.4 g/dL (6.4-8.2)
--- NOTE | 2020-06-13 14:20 | PC.NURSE ---
mental health contacted
--- NOTE | 2020-06-13 16:00 | PC.NURSE ---
lilli ovalle [facility] to evaluate pt.
[2020-06-13 16:33] VITALS: BP 157/68; PULSE 67
--- NOTE | 2020-06-13 17:10 | ED.PSYCH ---
HPI - Psych General Chief Complaint: Psychiatric Symptoms Stated Complaint: ambulance Source: patient and EMS Mode of arrival: EMS Limitations: no limitations History of Present Illness HPI Narrative: this is a 75-year-old patient assisted living brought in by EMS after he acted out mentioning being more depressed lately and had his is normal routine interrupted secondary to COVID/ isolation precautions at the assisted living with different living arrangements and different cafeteria arrangements while head during meals. The patient has been feeling more depressed and voiced that he wanted to kill himself today and took a knife to his arms causing superficial cuts. Symptoms had resolved prior to arrival and upon assessment of patient he does feel depressed but does not have any thoughts or plans of suicide. Currently the patient is comfortable with no shortness of breath no fever chills no chest pain no diarrhea or constipation no dysuria. MD complaint: suicidal ideation and feels depressed Onset (ago): hour(s) Duration: resolved prior to arrival History of same: No Relieving factors: none Exacerbating factors: other ( Current social events with isolation at the care home) Related Data Home Medications Medication Instructions Recorded Confirmed amlodipine 10 mg PO DAILY 06/06/20 06/13/20 atorvastatin 10 mg PO DAILY 06/06/20 06/13/20 cholecalciferol (vitamin D3) 50 mcg PO DAILY 06/06/20 06/13/20 cyanocobalamin (vitamin B-12) 2,500 mcg PO DAILY 06/06/20 06/13/20 folic acid 1 mg PO DAILY 06/06/20 06/13/20 gabapentin 300 mg PO HS 06/06/20 06/13/20 aspirin 81 mg PO DAILY 06/07/20 06/13/20 naproxen sodium [Aleve] 220 mg PO Q8H PRN 06/10/20 06/13/20 Allergies Allergy/AdvReac Type Severity Reaction Status Date / Time No Known Allergies Allergy Verified 06/10/20 05:09 Review of Systems Review of Systems: All systems reviewed & are unremarkable except as noted in HPI and below PMFSH Past Medical History Medical History Frequent falls Hearing loss Hyperlipidemia Hypertension Osteoarthritis Surgical History Surgical History History of bilateral cataract extraction History of bilateral knee replacement History of cervical spinal surgery With removal of bone spurs. History of lumbar fusion With laminectomy, at L4-S1. History of repair of left rotator cuff Status post LASIK surgery Family History Family History Other Hypertension Social History Social History Social History: Surrogate decision maker: Christiano Rasheed, son. Code status: Full code. Smoking status: Never smoker Alcohol intake: current Drinks per week: 4 Substance use: unknown Substance use type: does not use Additional living arrangements comments: Resides at [facility] in [place]. He has a parakeet. Ambulates with a walker. 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 Gender identity (if verbalized by the patient): Male Spiritual care concerns: No Exam Const: General: no acute distress Orientation/consciousness: patient oriented x3 HENMT: Head: normal to inspection Eyes: Conjunctivae: conjunctivae normal Pupils: Equal, round and reactive pupils present EOM: EOMs intact bilaterally Neck: Neck: normal visual inspection, no lymphadenopathy and no meningeal signs Chest: Chest palpation & inspection: normal inspection of the chest Resp: Effort & Inspection: normal respiratory effort Cardio: Rate: regular rate Rhythm: regular rhythm GI: GI Palp: Yes Soft to palpation Percussion: Yes normal to percussion Skin: General skin exam: normal color Wounds: wounds noted Other: Superficial
--- NOTE | 2020-06-13 17:26 | PC.NURSE ---
This RN and Daughter, POMary, spoke at length about ways to stay in contact with pt and ways to keep communication and pt engaged with family without being able to visit pt in person.
--- NOTE | 2020-06-13 18:00 | PC.NURSE ---
Linnea at [facility] requests pt go to [place] for treatment before they could accept pt back to their facility. pts daughter and son aware and are in agreeance with plan.
--- NOTE | 2020-06-13 18:31 | PC.NURSE ---
Pt up to bathroom, ambulatory with walker and assist x1. Pt verbalizes that he would be willing to go to [place] for psychiatric treatment.
[2020-06-13] MEDS: ACETAMINOPHEN 325 MG TABLET 650 MG PO (19:10)
--- NOTE | 2020-06-13 19:40 | PC.NURSE ---
Report to [facility], 2nd floor. pt to go to er hold. No geriatric psych beds available at this time. [facility] try again in the am. Pt taken to room 206 via wheelchair.
[2020-06-13 20:13] VITALS: BP 123/60; PULSE 63; RESP 16; TEMP 36.9; O2SAT 98
--- NOTE | 2020-06-13 20:14 | PC.NURSE ---
pt admitted to room 206 for ER Hold status via wheelchair by this RN, sitter and daughter present. Pt tolerated transfer well, orientated to room and policies, call light and bed controls. Daughter Sadia took pt belongings home with her leaving only pt cell phone and glasses.
[2020-06-13] MEDS: GABAPENTIN 300 MG CAPSULE PO (20:51)
[2020-06-13] MEDS: NAPROXEN 250 MG TABLET PO (21:33)
--- NOTE | 2020-06-13 21:47 | PC.NURSE ---
pt assisted with urinal, pain medication given and warm blanket, pt denies any other needs at this time.
--- NOTE | 2020-06-14 00:12 | PC.NURSE ---
pt sleeping, respirations even and regular, no evidence of distress noted
[2020-06-14 00:38] VITALS: BP 139/70; PULSE 65; RESP 16; TEMP 36.8; O2SAT 98
--- NOTE | 2020-06-14 02:01 | PC.NURSE ---
Pt sleeping, respirations even and regular, no evidence of distress noted
[2020-06-14 07:36] VITALS: BP 149/76; PULSE 72; RESP 18; TEMP 37.3; O2SAT 98
--- NOTE | 2020-06-14 07:38 | PC.NURSE ---
Patient states I know I have to get this all figured out. I couldn't deal with the way things were going at the senior care. In my room all the time and the way they wanted me to eat my meals.
[2020-06-14] MEDS: CHOLECALCIFEROL 1,000 UNITS TABLET 2000 UNITS PO (08:33)
[2020-06-14] MEDS: NAPROXEN 250 MG TABLET PO ×2 (08:33→15:35)
[2020-06-14] MEDS: CYANOCOBALAMIN 1,000 MCG TABLET 2500 MCG PO (08:34)
[2020-06-14] MEDS: amLODIPine BESYLATE 5 MG TABLET 10 MG PO (08:34)
[2020-06-14] MEDS: SERTRALINE HCL 50 MG TABLET PO (08:35)
[2020-06-14] MEDS: ASPIRIN 81 MG ENTERIC TABLET PO (08:35)
[2020-06-14] MEDS: FOLIC ACID 1 MG TABLET PO (08:35)
[2020-06-14] MEDS: ATORVASTATIN 10 MG TABLET PO (08:35)
--- NOTE | 2020-06-14 14:36 | PC.NURSE ---
Spoke with Ronda from [facility]. Placement found at [facility] in [place]. Accepting pending COVID test. COVID test obtained. Patient information faxed to [phone] per [facility] instruction. Patient made aware. This nurse attempted to notify daughter, Voicemail left. Will attempt to contact daughter again.
[2020-06-14 15:30] VITALS: BP 142/72; PULSE 64; RESP 18; TEMP 36.5; O2SAT 98
--- NOTE | 2020-06-14 16:15 | PC.NURSE ---
Pt. daughter Sadia returned call. This nurse notified daughter of possible acceptance/transfer to [facility] tomorrow and gave update on pt. Daughter states understanding.Patient notified that daughter was notified of transfer.
[2020-06-14] MEDS: GABAPENTIN 300 MG CAPSULE PO (20:59)
[2020-06-14] MEDS: ACETAMINOPHEN 500 MG TABLET PO (20:59)
[2020-06-15 00:53] LABS: SARS-CoV-2 RNA PCR Negative
[2020-06-15 01:00] VITALS: BP 159/82; PULSE 65; RESP 16; TEMP 36.6; O2SAT 97
--- NOTE | 2020-06-15 03:58 | PC.NURSE ---
pt sleeping, no distress noted
--- NOTE | 2020-06-15 05:26 | PC.NURSE ---
pt was incontinent of urine, pt ambulated to bathroom with walker and sba, cleaned with bath wipes and shampoo cap, clean gown and depend put on, bed linens changed, and pt given fresh ice water
[2020-06-15 07:59] VITALS: BP 135/71; PULSE 65; RESP 18; TEMP 36.5; O2SAT 99
[2020-06-15] MEDS: amLODIPine BESYLATE 5 MG TABLET 10 MG PO (08:20)
[2020-06-15] MEDS: CHOLECALCIFEROL 1,000 UNITS TABLET 2000 UNITS PO (08:20)
[2020-06-15] MEDS: CYANOCOBALAMIN 1,000 MCG TABLET 2500 MCG PO (08:20)
[2020-06-15] MEDS: FOLIC ACID 1 MG TABLET PO (08:21)
[2020-06-15] MEDS: ATORVASTATIN 10 MG TABLET PO (08:21)
[2020-06-15] MEDS: SERTRALINE HCL 50 MG TABLET PO (08:21)
[2020-06-15] MEDS: NAPROXEN 250 MG TABLET PO (08:21)
[2020-06-15] MEDS: ASPIRIN 81 MG ENTERIC TABLET PO (08:21)
--- NOTE | 2020-06-15 09:09 | PC.NURSE ---
Negative Covid result faxed to [facility], spoke with staff at [facility] and they advise he will need a new voluntary admit form started and faxed to them prior to accepting patient
--- NOTE | 2020-06-15 10:20 | PC.NURSE ---
Accepted by [facility]'Kira Arcos to give report to receiving RN
--- NOTE | 2020-06-15 10:30 | PC.NURSE ---
Ambulance [facility] paged at this time for transfer
--- NOTE | 2020-06-15 10:33 | PC.NURSE ---
[facility] unable to transport, [facility] contacted and will page out for transfer
--- NOTE | 2020-06-15 11:26 | PC.NURSE ---
Patient transported off of floor via [facility] to [facility]. Agnes from [facility] given report and notified of departure. Daughter Sadia notified also
== END 2020-06-15 11:29 ==
LOC: CHSED 14:32 → CHS2ND 19:42
PROVIDERS: Emergency Medicine; Family Medicine; Emergency Provider Emergency Medicine; PCP Nurse Practitioner Family
DX: R45.851 Suicidal ideations (principal); F32.9 Major depressive disorder, single episode, unspecified; Z79.899 Other long term (current) drug therapy; E78.5 Hyperlipidemia, unspecified; I10 Essential (primary) hypertension; Z20.828 Contact with and (suspected) exposure to other viral communicable diseases
CPT/HCPCS: 36415; 80053; 80307; 81001; 84443; 85025; 87635; 93005; 99285; A9270; C9803; U0003

== ENCOUNTER 2020-07-01 15:01 | Outpatient (NON) | payer MEDICARE, SELFPAY ==
[2020-07-01 15:14] LABS: Add Urine Microscopic? NO; Appearance Urine Clear (Clear); Bilirubin Urine Negative (Negative); Blood Urine Negative (Negative); Color Urine Yellow (Yellow); Glucose Urine UA Negative (Negative); Ketones Urine Negative (Negative); Leukocyte Esterase Ur Negative LEU/UL (Negative); Nitrate Urine Negative (Negative); Protein Urine Negative (Negative); Urobilinogen Urine 0.2 mg/dL (0.2-1.0); pH Urine 6.5 (5.0-8.0)
== END 2020-07-01 15:02 ==
PROVIDERS: Visit Provider Family Medicine
DX: R30.0 Dysuria (principal)
CPT/HCPCS: 81003

== ENCOUNTER 2021-04-09 10:32 | Outpatient (NON) | payer MEDICARE, SELFPAY ==
[2021-04-09 11:01] LABS: Basophils Absolute Auto 0.04 K/mm3 (0.00-0.10); Basophils Percent Auto 0.5 % (0.0-1.0); Eosinophils Percent Auto 1.3 % (1.0-6.0); Hematocrit 33.8 % (37.0-46.0); Hemoglobin 10.8 g/dL (12.4-15.3); Immature Granulocyte Absolute 0.04 K/mm3 (0.00-0.00); Immature Granulocyte Percent A 0.5 % (0.0-0.0); Lymphocytes Absolute Auto 0.88 K/mm3 (1.10-4.50); Lymphocytes Percent Auto 11.1 % (18.0-42.0); Mean Corpuscular Hemoglobin 29.6 pg (27.0-31.0); Mean Corpuscular Volume 92.6 fL (78.0-102.0); Mean Platelet Volume 9.5 fl (8.7-11.0); Monocytes Absolute Auto 0.65 K/mm3 (0.10-0.90); Monocytes Percent Auto 8.2 % (2.0-11.0); Neutrophils Absolute Auto 6.2 K/mm3 (1.7-7.2); Neutrophils Percent Auto 78.4 % (50.0-70.0); Platelet Count Result 446 K/mm3 (150-420); Red Blood Count 3.65 M/mm3 (4.70-6.10); Red Cell Distribution Width 12.6 % (11.6-14.4); White Blood Count 7.9 K/mm3 (4.8-10.8)
[2021-04-09 11:33] LABS: Alanine Aminotransferase 23 U/L (16-63); Albumin Level 3.8 g/dL (3.4-5.0); Alkaline Phosphatase 113 U/L (46-116); Anion Gap 10 mmol/L (8-16); Aspartate Amino Transferase 17 U/L (15-37); Bilirubin,Total 0.4 mg/dL (0.00-1.00); Blood Urea Nitrogen 21 mg/dL (7-18); Calcium 9.2 mg/dL (8.5-10.1); Carbon Dioxide 28 mmol/L (21-32); Chloride 101 mmol/L (98-108); Cholesterol 154 mg/dL (0-200); Estimated Glomerular Filt Rate > 60; Glucose 87 mg/dL (70-99); HDL Direct 94 mg/dL (40-60); LDL Cholesterol Calculated 48 mg/dL (<130); Osmolality Calculated 290 mOsm/kg (285-295); Potassium 4.3 mmol/L (3.5-5.1); Prostate Specific Antigen 0.5 ng/mL (< OR = 4.0); Sodium 139 mmol/L (136-145); Total Protein 7.3 g/dL (6.4-8.2); Triglycerides 59 mg/dL (0-150)
== END 2021-04-09 10:33 | disposition home or self-care (01) ==
LOC: CHSLAB 10:36
DX: E78.00 Pure hypercholesterolemia, unspecified (principal); I10 Essential (primary) hypertension; Z12.5 Encounter for screening for malignant neoplasm of prostate
CPT/HCPCS: 36415; 80053; 80061; 84153; 85025; G0103

== ENCOUNTER 2021-08-02 05:59 | Emergency (ER) | payer MEDICARE, SELFPAY ==
--- NOTE | ~2021-08-02 | XR_ITS ---
EXAMINATION: XR knee LT 3V EXAM DATE: 08/02/2021 06:51 INDICATION: knee locked after twisting/falling TECHNIQUE: Three projections of the right knee. There is no prior study for comparison. FINDINGS: There is acute closed posttraumatic oblique fracture through the left femoral distal metaph ysis, above the femoral component of knee replacement hardware. There is about a centimeter of displa cement. Small joint effusion. No other acute fracture is identified. There are arterial calcification s, arteriosclerosis. IMPRESSION: Acute left femoral distal metaphyseal fracture. Reviewed, dictated and finalized at location A. [employer] [employer]
[2021-08-02 06:12] VITALS: BP 163/85; PULSE 79; RESP 18; TEMP 36.8; O2SAT 100
--- NOTE | 2021-08-02 06:12 | ED.LOWEXIN ---
HPI - Extremity Injury (Lower) General Chief Complaint: Extremity Injury, Lower Stated Complaint: left knee Time Seen by Provider: 08/02/21 06:12 Source: patient Mode of arrival: EMS Limitations: no limitations History of Present Illness HPI Narrative: 76-year-old man status post bilateral total knee arthroplasties brought to the emergency department today by EMS after while dressing the patient twisted his knee and injured it. He has been able to straighten his knee since that occurred. He is in a great deal of pain. He denies any numbness or tingling has had no prior similar symptoms. MD complaint: knee injury Onset (ago): hour(s) (1) Injury: Left: knee Type of Injury: unknown Place: home ([facility] living) Severity: severe Relieving factors: rest Exacerbating factors: movement and palpation Context: fall Associated symptoms: unable to bear weight Other symptoms: none Related Data Home Medications Medication Instructions Recorded Confirmed amlodipine 10 mg PO DAILY 06/06/20 08/02/21 atorvastatin 10 mg PO DAILY 06/06/20 08/02/21 cholecalciferol (vitamin D3) 50 mcg PO DAILY 06/06/20 08/02/21 cyanocobalamin (vitamin B-12) 1,000 mcg PO DAILY 06/06/20 08/02/21 folic acid 1 mg PO DAILY 06/06/20 08/02/21 gabapentin 300 mg PO HS 06/06/20 08/02/21 aspirin 81 mg PO DAILY 06/07/20 08/02/21 donepezil 5 mg PO HS 08/02/21 08/02/21 mirtazapine 7.5 mg PO HS 08/02/21 08/02/21 polyethylene glycol 3350 [Gavilax] 17 g PO DAILY 08/02/21 08/02/21 sennosides-docusate sodium [Senna See Rx Instructions .ROUTE .COMPLEX 08/02/21 08/02/21 Plus] tramadol 50 mg PO Q6H PRN 08/02/21 08/02/21 Allergies Allergy/AdvReac Type Severity Reaction Status Date / Time No Known Allergies Allergy Verified 06/10/20 05:09 Review of Systems Review of Systems: All systems reviewed & are unremarkable except as noted in HPI and below Constitutional: Constitutional: Denies chills and Denies fever(s) Cardiovascular: Cardiovascular: Denies chest pain and Denies radiating jaw, neck or arm pain Respiratory: Respiratory: Denies cough and Denies dyspnea Gastrointestinal: Gastrointestinal: Denies nausea and Denies vomiting Musculoskeletal: Musculoskeletal: Reports as per HPI and Denies back pain Integumentary/Breasts: Skin/Breast: Denies pruritus and Denies rash Neurologic: Denies vertigo, Denies dizziness, Denies syncope, Denies focal weakness and Denies numbness Hematologic/Lymphatic: Hematologic/Lymphatic: Denies easy bleeding and Denies easy bruising [facility] Past Medical History Medical History Frequent falls Hearing loss Hyperlipidemia Hypertension Osteoarthritis Surgical History Surgical History History of bilateral cataract extraction History of bilateral knee replacement History of cervical spinal surgery With removal of bone spurs. History of lumbar fusion With laminectomy, at L4-S1. History of repair of left rotator cuff Status post LASIK surgery Family History Family History Other Hypertension Social History Social History Social History: Surrogate decision maker: Christiano Rasheed, son. Code status: Full code. Smoking status: Never smoker Alcohol intake: current Drinks per week: 4 Alcohol use details: Occasional Substance use: unknown Substance use type: does not use Additional living arrangements comments: Resides at [facility]. He has a parakeet. Ambulates with a walker. 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 Gender identity (if verbalized by the patient): Male Sexual Orientation (if Verbalized by the Patient): Straight or Heterosexual Spiritual car
[2021-08-02] MEDS: ONDANSETRON INJ 4 MG/2 ML VIAL IV PUSH (06:27)
[2021-08-02] MEDS: MORPHINE SULFATE (*CRX) 2 MG/ML INJ IV PUSH (06:27)
--- NOTE | 2021-08-02 08:49 | PC.NURSE ---
per erp patient has been declined by [facility] for transfer.
--- NOTE | 2021-08-02 08:53 | ED.GENADULT ---
HPI - General Adult General Chief complaint: Extremity Injury, Lower Stated complaint: left knee Time Seen by Provider: 08/02/21 06:12 Source: patient Mode of arrival: EMS Limitations: no limitations History of Present Illness HPI narrative: Care was taken from Dr. Pop at 0700. Please see his note for details. Related Data Home Medications Medication Instructions Recorded Confirmed amlodipine 10 mg PO DAILY 06/06/20 08/02/21 atorvastatin 10 mg PO DAILY 06/06/20 08/02/21 cholecalciferol (vitamin D3) 50 mcg PO DAILY 06/06/20 08/02/21 cyanocobalamin (vitamin B-12) 1,000 mcg PO DAILY 06/06/20 08/02/21 folic acid 1 mg PO DAILY 06/06/20 08/02/21 gabapentin 300 mg PO HS 06/06/20 08/02/21 aspirin 81 mg PO DAILY 06/07/20 08/02/21 donepezil 5 mg PO HS 08/02/21 08/02/21 mirtazapine 7.5 mg PO HS 08/02/21 08/02/21 polyethylene glycol 3350 [Gavilax] 17 g PO DAILY 08/02/21 08/02/21 sennosides-docusate sodium [Senna See Rx Instructions .ROUTE .COMPLEX 08/02/21 08/02/21 Plus] tramadol 50 mg PO Q6H PRN 08/02/21 08/02/21 Allergies Allergy/AdvReac Type Severity Reaction Status Date / Time No Known Allergies Allergy Verified 06/10/20 05:09 Review of Systems Constitutional: Constitutional: Reports no additional constitutional complaints Eyes: Eyes: Reports no additional eye complaints ENT: Reports system reviewed and no additional complaints, except as documented Cardiovascular: Cardiovascular: Reports no additional cardiovascular complaints Respiratory: Respiratory: Reports no additional respiratory complaints Gastrointestinal: Gastrointestinal: Reports no additional gastrointestinal complaints Genitourinary: Genitourinary: Reports no additional male genitourinary complaints Musculoskeletal: Musculoskeletal: Reports as per HPI Integumentary/Breasts: Skin/Breast: Reports system reviewed and no additional complaints, except as docu Neurologic: Reports system reviewed and no additional complaints, except as documented Psychiatric: Psychiatric: Reports no additional psychiatric complaints Endocrine: Endocrine: Reports no additional endocrine complaints Hematologic/Lymphatic: Hematologic/Lymphatic: Reports no additional hematologic/lymphatic complaints Allergic/Immunologic: Allergic/Immunologic: Reports no additional allergic/immunologic complaints [facility] Past Medical History Medical History Frequent falls Hearing loss Hyperlipidemia Hypertension Osteoarthritis Surgical History Surgical History History of bilateral cataract extraction History of bilateral knee replacement History of cervical spinal surgery With removal of bone spurs. History of lumbar fusion With laminectomy, at L4-S1. History of repair of left rotator cuff Status post LASIK surgery Family History Family History Other Hypertension Social History Social History Social History: Surrogate decision maker: Christiano Rasheed, aryan. Code status: Full code. Smoking status: Never smoker Alcohol intake: current Drinks per week: 4 Alcohol use details: Occasional Substance use: unknown Substance use type: does not use Additional living arrangements comments: Resides at [facility]. He has a parakeet. Ambulates with a walker. 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 Gender identity (if verbalized by the patient): Male Sexual Orientation (if Verbalized by the Patient): Straight or Heterosexual Spiritual care concerns: No Exam Const: General: no acute distress and alert Orientation/consciousness: patient oriented x3 Limitations: No altered mental status HENMT: Head: normal
[2021-08-02] MEDS: MORPHINE SULFATE (*CRX) 4 MG/ML INJ IV PUSH (09:44)
[2021-08-02 10:54] VITALS: BP 163/75; PULSE 57; RESP 16; TEMP 36.6; O2SAT 97
== END 2021-08-02 10:59 | disposition short-term general hospital (02) ==
PROVIDERS: Emergency Provider Family Medicine; PCP Nurse Practitioner
DX: S72.92XA Unspecified fracture of left femur, initial encounter for closed fracture (principal); E78.5 Hyperlipidemia, unspecified; I10 Essential (primary) hypertension
CPT/HCPCS: 73562; 96374; 96375; 96376; 99285; J2270; J2405; L1830